=== PATIENT | female | born 1940 | race African-American/Black ===

== ENCOUNTER 2016-07-26 19:02 | Emergency (ER) | payer OTHER, BC ==
[2016-07-26 19:23] VITALS: BP 188/76; PULSE 60; TEMP 98.5; BMI 29.0
--- NOTE | 2016-07-26 19:41 | PDOC ---
History of Present Illness - General Chief Complaint: Edema Stated Complaint: SWOLLEN HAND Time Seen by Provider: 07/26/16 19:34 History Source: Patient Exam Limitations: No Limitations - History of Present Illness Initial Comments: 07/26/16 19:36 She came with daughter for evaluation of right hand swelling. Mother reports does not feel normal, and reports some minor swelling, Some minor tingling. Is uncertain as to the time frame, denies any changes in activity or exercise, denies any trauma no recent heavy lifting or strenuous activity. 07/26/16 19:37 Timing/Duration: unsure Severity: mild Associated Symptoms: reports: denies symptoms, other (no aspirin, palpitations, shortness of breath, numbness or tingling to other hands or feet, no peripheral edema to her lower extremities). denies: cough, diaphoresis, fever/chills, malaise, nausea/vomiting, shortness of breath, weakness Past History - Travel Traveled outside of the country in the last 30 days: No Close contact w/someone who was outside of country & ill: No - Past Medical History Allergies/Adverse Reactions: Allergies Allergy/AdvReac Type Severity Reaction Status Date / Time No Known Allergies Allergy Verified 07/26/16 19:21 Home Medications: Ambulatory Orders Aspirin [ASA -] 81 mg PO DAILY 01/02/16 Aspirin/Dipyridamole [Aggrenox -] 1 combo PO BID 01/02/16 Cholecalciferol (Vitamin D3) [Vitamin D3] 1,000 unit PO DAILY 01/02/16 Glipizide 5 mg PO DAILY 01/02/16 Hydralazine HCl 100 mg PO TID 01/02/16 Losartan Potassium [Cozaar] 100 mg PO DAILY 01/02/16 Nifedipine [Procardia Xl] 60 mg PO BID 01/02/16 Ascorbic Acid [Vitamin C -] 500 mg PO DAILY tablet 01/03/16 Atorvastatin Ca [Lipitor] 20 mg PO HS tablet 01/03/16 Chlorthalidone [Hygroton -] 25 mg PO DAILY tablet 01/03/16 Clonidine HCl [Catapres -] 0.2 mg PO DAILY tablet 01/03/16 Ferrous Sulfate [Feosol] 325 mg PO DAILY ud 01/03/16 CVA: Yes Diabetes: Yes HTN: Yes Seizures: No - Psycho/Social/Smoking Cessation Hx Anxiety: No Suicidal Ideation: No Smoking Status: No Smoking History: Never smoked Have you smoked in the past 12 months: No Number of Cigarettes Smoked Daily: 0 Hx Alcohol Use: No Drug/Substance Use Hx: No Substance Use Type: None Hx Substance Use Treatment: No Review of Systems - Review of Systems Able to Perform ROS?: Yes Is the patient limited Liberian proficient: Yes Constitutional: Yes: Symptoms Reported, See HPI HEENTM: No: See HPI Respiratory: No: Symptoms reported Musculoskeletal: Yes: Symptoms Reported, See HPI All Other Systems: Reviewed and Negative *Physical Exam - Vital Signs Last Vital Signs Temp Pulse Resp BP Pulse Ox 98.5 F 60 18 188/76 98 07/26/16 19:21 07/26/16 19:21 07/26/16 19:21 07/26/16 19:21 07/26/16 19:21 - Physical Exam General Appearance: Yes: Nourished, Appropriately Dressed HEENT: positive: PHILOMENA, Normal ENT Inspection, TMs Normal, Pharynx Normal Neck: positive: Supple Respiratory/Chest: positive: Lungs Clear, Normal Breath Sounds Gastrointestinal/Abdominal: positive: Soft Extremity: positive: Normal Capillary Refill, Normal Inspection (hand does not appear larger than left with observation, daughter agrees there is no changes in size to her knowledge with mother's hand. Has strong flexion and extension to all digits, neurovascular intact to digits. Leg), Normal Range of Motion, Other (monroe with a soft tissue mass approximately 10 cm x 5 cm on the volar aspect of her right arm approximately 3 cm below olecranon fossa on the ulnar aspect. Consistent with appearance of lipoma, is nontender, nonfluctuant) Integumentary: positive: Normal Color, Dry, Warm, Pale Neurologic: positive: baker test II-XII NML intact, Fully Oriented, Alert, Normal Mood/ Affect, Normal Response Medical Decision Making - Medical Decision Making 07/26/16 19:43 Large lipoma to volar right forearm, potentially occluding some lymphatic versus neurovascular structures causing mild symptoms of patient's right hand. 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 Follow-up with primary physician for consultation for lipoma evaluation/excision A follow-up with plastic surgery Return to emergency Department for worsening swelling, numbness or tingling, extension of any neurologic changes to both extremities, fevers or other problems
== END 2016-07-26 19:58 | disposition home or self-care (01) ==
LOC: JERFT 19:02
DX: D17.21 Benign lipomatous neoplasm of skin and subcutaneous tissue of right arm (principal); E11.9 Type 2 diabetes mellitus without complications; Z79.84 Long term (current) use of oral hypoglycemic drugs; Z86.73 Personal history of transient ischemic attack (TIA), and cerebral infarction without residual deficits
CPT/HCPCS: 99281-25

== ENCOUNTER 2016-07-28 17:07 | Emergency (ER) | payer OTHER, BC ==
[2016-07-28 17:12] VITALS: TEMP 98; BMI 29.0
--- NOTE | 2016-07-28 17:51 | PDOC ---
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 She states that the tingling is constant. She denies any kind of weakness or trouble ambulating. She states that she had similar sensations localized on the right side in the past. The patient notes that she has a lipoma on her right forearm for which she is being followed by a plastic surgeon. The patient denies chest pain, shortness of breath, headache and dizziness. Denies fever, chills, nausea, vomit, diarrhea and constipation. Denies dysuria, frequency, urgency and hematuria. Allergies: None Past surgical history: Social history: She denies tobacco, alcohol and drug use PMD - Dr. Daria Ghotra Neurologist - Dr. Osmin Oshea <Theron Blair - Last Filed: 07/28/16 19:26> <Nidia Sheridan - Last Filed: 07/28/16 20:38> - General Chief Complaint: CVA/TIA Stated Complaint: NUMBNESS Time Seen by Provider: 07/28/16 17:51 Past History <Theron Blair - Last Filed: 07/28/16 19:26> - Past Medical History CVA: Yes Diabetes: Yes HTN: Yes Hypercholesterolemia: Yes Seizures: No - Psycho/Social/Smoking Cessation Hx Anxiety: No Suicidal Ideation: No Smoking Status: No Smoking History: Never smoked Have you smoked in the past 12 months: No Number of Cigarettes Smoked Daily: 0 Information on smoking cessation initiated: No Hx Alcohol Use: No Drug/Substance Use Hx: No Substance Use Type: None Hx Substance Use Treatment: No <Nidia Sheridan - Last Filed: 07/28/16 20:38> - Past Medical History Allergies/Adverse Reactions: Allergies Allergy/AdvReac Type Severity Reaction Status Date / Time No Known Allergies Allergy Verified 07/28/16 17:10 Home Medications: Ambulatory Orders Aspirin [ASA -] 81 mg PO DAILY 01/02/16 Aspirin/Dipyridamole [Aggrenox -] 1 combo PO BID 01/02/16 Cholecalciferol (Vitamin D3) [Vitamin D3] 1,000 unit PO DAILY 01/02/16 Glipizide 5 mg PO DAILY 01/02/16 Hydralazine HCl 100 mg PO TID 01/02/16 Losartan Potassium [Cozaar] 100 mg PO DAILY 01/02/16 Ascorbic Acid [Vitamin C -] 500 mg PO DAILY tablet 01/03/16 Atorvastatin Ca [Lipitor] 20 mg PO HS tablet 01/03/16 Chlorthalidone [Hygroton -] 25 mg PO DAILY tablet 01/03/16 Amlodipine Besylate 10 mg PO ASDIR 07/26/16 Carbamazepine [Carbamazepine ER] 200 mg PO BID 07/26/16 Omeprazole 20 mg PO ASDIR 07/26/16 Review of Systems - Review of Systems Able to Perform ROS?: Yes Comments:: 07/28/16 17:52 GENERAL/CONSTITUTIONAL: No fever or chills. No weakness. HEAD, EYES, EARS, NOSE AND THROAT: No change in vision. No ear pain or discharge. No sore throat. CARDIOVASCULAR: No chest pain or shortness of breath RESPIRATORY: No cough, wheezing, or hemoptysis. GASTROINTESTINAL: No nausea, vomiting, diarrhea or constipation. GENITOURINARY: No dysuria, frequency, or change in urination. MUSCULOSKELETAL: No joint or muscle swelling or pain. No neck or back pain. SKIN: No rash NEUROLOGIC: (+)Right upper and lower extremity tingling. No headache, vertigo, loss of consciousness, or change in strength/sensation. ENDOCRINE: No increased thirst. No abnormal weight change HEMATOLOGIC/LYMPHATIC: No anemia, easy bleeding, or history of blood clots. ALLERGIC/IMMUNOLOGIC: No hives or skin allergy. <Theron Blair - Last Filed: 07/28/16 19:26> *Physical Exam - Vital Signs Last Vital Signs Temp Pulse Resp BP Pulse Ox 98 F 57 L 18 167/73 99 07/28/16 17:10 07/28/16 17:10 07/28/16 17:10 07/28/16 17:10 07/28/16 17:10 - Physical Exam Comments: 07/28/16 17:53 GENERAL: Awake, alert, and fully oriented, in no acute distress HEAD: No signs of trauma, normocephalic, atraumatic EYES: PERRLA, EOMI, sclera anicteric, conjunctiva clear ENT: Auricles normal inspection, hearing grossly normal, nares patent, oropharynx clear without exudates. Moist mucosa NECK: Normal ROM, supple, no lymphadenopathy, JVD, or masses LUNGS: No distress, speaks full sentences, clear to auscultation bilaterally HEART: Regular rate and rhythm, normal S1 and S2, no murmurs, rubs or gallops, peripheral pulses normal and equal bilaterally. ABDOMEN: Soft, nontender, normoactive bowel sounds. No guarding, no rebound. No masses EXTREMITIES: (+) Traced pitting edema bilaterally. Normal inspection, Normal range of motion. No clubbing or cyanosis. NEUROLOGICAL: Alert, awake, appropriate. Cranial nerves 2-12 intact. No deficits to light touch and temperature in face, upper extremities and lower extremities. No motor deficits in the in face, upper extremities and lower extremities. Normoreflexic in the upper and lower extremities. Normal speech. Toes are down-going bilaterally. NIH stroke scale is 0 but she has subjective feeling of tingling on the right upper and lower extremity. SKIN: Warm, Dry, normal turgor, no rashes or lesions noted. <Theron Blair - Last Filed: 07/28/16 19:26> - Vital Signs Last Vital Signs Temp Pulse Resp BP Pulse Ox 98 F 57 L 18 167/73 99 07/28/16 17:10 07/28/16 17:10 07/28/16 17:10 07/28/16 17:10 07/28/16 17:10 <Nidia Sheridan - Last Filed: 07/28/16 20:38> NIH Stroke Scale - Last Known Well Date/Time & Onset Date Last Known Well: 07/27/16 (woke up with tingling to rt arm,rt leg) Time Last Known Well: 12:00 - Initial Evaluation Level of consciousness: Alert Ask patient the month and their age: Answers both correctly Ask patient to open & close eyes; make fist and let go: Obeys both correctly Best gaze (horizontal eye movement): Normal Visual field testing: No visual field loss Facial paresis (Show teeth/raise eyebrows/close eyes tight): Normal symmetrical movement Motor Function: Left Arm: Normal Motor Function: Right Arm: Normal (extends arm 90 (or 45) degrees for 10 seconds without drift Motor Function: Left Leg: Normal (extends leg 30 degrees for 5 seconds without drift) Motor Function: Right Leg: Normal (extends leg 30 degrees for 5 seconds without drift) Limb Ataxia: No ataxia Sensory(Use pinprick test arms,legs,trunk,face/side to side): Normal Best language (Describe picture, name items, read sentences): No Aphasia Dysarthria (read several words): Normal articulation Extinction and Inattention: No abnormality - Total Score NIH Stroke Scale Score: 0 <ArvinNidia Olivas - Last Filed: 07/28/16 20:38> tPA Exclusion checklist 3-4.5h - Time Elapsed Date last known well: 07/27/16 Time last known well: 12:00 Elaspsed time: 1 Day(s) and 8 Hour(s) and 34 Minutes - Thrombolytic Therapy Candidate Is patient eligible for thrombolytic therapy: No - Exclusion Criteria 3-4.5 hr SBP greater than 185 or DBP greater than 110mmHg despite tx: No Recent IC/spinal surgery,head trauma or stroke<3mos.: No Hx IC hemorrhage, IC neoplasm, AV malformation or aneurysm: No Active internal bleeding: No Blding diathesis(low plt ct, inc PTT,INR>1.7 or use of NOAC): No Symptoms suggest subarachnoid hemorrhage: No CT demonstrates multilobar infarct(>1/3 cerebral hemiphere): No Arterial puncture at noncompressible site in previous 7 days: No Blood glucose concentration less than 50mg/dL (2.7mmol/L): No - Relative Exclusion Criteria 3-4.5 hr Life expectancy <1 yr or severe co-morbid illness: No : No Patient/family refused: No Rapid improvement: No Stroke severity too mild: Yes Recent acute [place] (w/in previous 3 months): No Seizure at onset with postictal residual neuro impairments: No Major surgery or serious trauma w/in previous 14 days: No Recent GI or hemorrhage (w/in previous 21 days): No - Add'l Relative Exclusion 3-4.5 hr Age > 80: No Hx of both diabetes AND prior ischemic stroke: Yes Taking an oral anticoagulant regardless of INR: No NIHSS >25: No - Ineligibility reason(s) Reasons No tPA given: Outside of window - delayed arrival (pt's NIHSS is zero and she woke up 12 hours ago with subjective tingling to rt arm.leg) <Nidia Sheridan - Last Filed: 07/28/16 20:38> Critical Care Time/MDM Note - Medical Decision Making Note: 07/28/16 19:[address] Reviewed by: Dr. Ravi Briscoe Impression: No definite interval change is seen in comparison to a previous CT exam of 01/01/2016. Small chronic left occipital and left parietal cortical infarcts are noted as well as a small chronic right pontine infarct which are much better visualized on MRI (10/24/2015). <Theron Blair - Last Filed: 07/28/16 19:26> Discharge Disposition - Transfer to Acute Care Facility Transfer comment: 07/28/16 17:53 Documentation prepared by Theron Blair, acting as medical case worker for Nidia Sheridan MD <Theron Blair - Last Filed: 07/28/16 19:26> - Discharge Dispostion Last Admission D/C Date: 05/07/15 <Nidia Sheridan - Last Filed: 07/28/16 20:38> - Diagnosis Tingling in extremities Diabetes mellitus Qualifiers: Diabetes mellitus type: type 2 Diabetes mellitus complication status: with hyperglycemia Diabetes mellitus chcf insulin use: without chcf use Qualified Code(s): E11.65 - Type 2 diabetes mellitus with hyperglycemia - Discharge Dispostion Disposition: HOME Condition at time of disposition: Stable - Referrals Referrals: Daria Moreno MD [Primary Care Provider] - Osmin Oshea MD [Staff Physician] - - Patient Instructions Printed Discharge Instructions: DI for Numbness/tingling Additional Instructions: please followup with the neurologist Call 911 if you experience weakness in your arm or leg,slurred speech,facial droop or confusion
[2016-07-28 18:02] LABS: BASOPHIL 0.8 % (0-2.0); EOSINOPHIL 1.7 % (0-4.5); MCH 24.2 pg (25.7-33.7); MCHC 31.1 g/dl (32.0-36.0); MEAN CELL VOLUME 77.7 fl (80-96); MEAN PLT VOLUME 9.3 fl (7.5-11.1); NEUTROPHILS 69.2 % (42.8-82.8); PLATELET COUNT 143 K/MM3 (134-434); RDW 14.7 % (11.6-15.6); WHITE BLOOD COUNT 6.3 K/mm3 (4.0-10.0)
[2016-07-28 18:32] LABS: INR 1.01 (0.82-1.09); PROTHROMBIN TIME (PATIENT) 11.1 SEC (9.98-11.88)
[2016-07-28 18:42] LABS: ALBUMIN 3.9 g/dl (3.4-5.0); ANION GAP 9 (8-16); BILIRUBIN,TOTAL 0.3 mg/dL (0.2-1.0); CALCIUM 8.9 mg/dL (8.5-10.1); CO2 27 mmol/L (21-32); COCKROFT - GAULT 69.6065; CREATININE 0.9 mg/dL (0.55-1.02); GLUCOSE,RANDOM 217 mg/dL (74-106); SGOT/AST 19 U/L (15-37); SGPT/ALT 26 U/L (12-78); TOT PROT 6.9 g/dl (6.4-8.2)
[2016-07-28 18:44] LABS: ALK PHOS 113 U/L (45-117); TROPONIN I < 0.02 ng/ml (0.00-0.05)
[2016-07-28 20:41] VITALS: BP 121/61; PULSE 81
--- NOTE | 2016-07-29 13:58 | EKG ---
Test Reason : Blood Pressure : / mmHG Vent. Rate : 056 BPM Atrial Rate : 056 BPM P-R Int : 154 ms QRS Dur : 114 ms QT Int : 450 ms P-R-T Axes : 055 -42 015 degrees QTc Int : 434 ms SINUS BRADYCARDIA LEFT AXIS DEVIATION NONSPECIFIC T WAVE ABNORMALITY ABNORMAL ECG WHEN COMPARED WITH ECG OF 01-JAN-2016 11:45, CRITERIA FOR SEPTAL INFARCT ARE NO LONGER PRESENT Confirmed by REYNALDO DALLAS, STEVEN ([id number]) on 07/29/2016 1:57:38 PM Referred By: Confirmed By:STEVEN JACOBS MD
== END 2016-07-28 20:45 | disposition home or self-care (01) ==
LOC: JER 17:07
DX: R20.2 Paresthesia of skin (principal); I69.851 Hemiplegia and hemiparesis following other cerebrovascular disease affecting right dominant side; I10 Essential (primary) hypertension; E11.65 Type 2 diabetes mellitus with hyperglycemia; Z79.84 Long term (current) use of oral hypoglycemic drugs; E78.00 Pure hypercholesterolemia, unspecified; G40.509 Epileptic seizures related to external causes, not intractable, without status epilepticus
CPT/HCPCS: 36415; 70450-TC; 71010-TC; 80053; 82550; 82553; 84484; 85025; 85610; 93005; 93010; 99285-25

== ENCOUNTER → 2016-08-10 | Day surgery (SDC) | payer OTHER, BC ==
--- NOTE | 2016-08-11 13:11 | PATH ---
Cytology Non-Gynecological Report Patient Name: MARILEE MURPHY [facility]. Rec. #: [id number] /Age/Gender: 1940 (Age: 76) / F Account: [id number] Location: RADIOLOGY Taken: 08/10/2016 Received: 08/10/2016 Reported: 08/11/2016 Physicians: Jignesh Sanders M.D. Specimen(s) Received THYROID FNA RIGHT LOBE Clinical History Right thyroid nodule, 1.58 x 1.28 x 1.51 cm Final Diagnosis THYROID GLAND, RIGHT LOBE, US GUIDED FINE NEEDLE ASPIRATION BIOPSY: SATISFACTORY FOR EVALUATION. NO MALIGNANT CELLS IDENTIFIED. CONSISTENT WITH NODULAR GOITER WITH CYSTIC CHANGE (BENIGN FOLLICULAR NODULE, BETHESDA CATEGORY II, BENIGN), SEE COMMENT. Comment: The smears and the cell block show scattered clusters of bland appearing follicular epithelial cells arranged in mixed micro-and microfollicles. Some cells show Hurthle cell (oncocytic) change. Numerous macrophages are present indicative of cystic change. Colloid is present. Electronically Signed Jong Alvarado M.D. Gross Description Received are four air dried smears, four smears in 95% alcohol, and 20 cc of bloody fluid in formalin. Four diff-quik stained slides, four Pap stained slides and one cell block are made.
== END | disposition home or self-care (01) ==
LOC: JRADIR 08:50
PROVIDERS: ATTEND Internal Medicine
PROC: 0G9G3ZX Drainage of Left Thyroid Gland Lobe, Percutaneous Approach, Diagnostic (ICD-10-PCS; principal; 2016-08-10)
DX: E04.9 Nontoxic goiter, unspecified (principal)
CPT/HCPCS: 76942; 88173; 88305-TC

== ENCOUNTER 2016-08-13 00:44 | Emergency (ER) | payer OTHER, BC ==
[2016-08-13 01:32] VITALS: BP 168/80; PULSE 78; TEMP 97.5; BMI 30.4
[2016-08-13] MEDS ORDERED: CHLORTHALIDONE 25 MG TABLET PO STA (01:58)
--- NOTE | 2016-08-13 01:58 | PDOC ---
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 Patient reports she ran out of her diuretics 2 days ago. Presents here with bilateral leg swelling, but no pain. Denies lightheadedness, diaphoresis, chest pain, palpitations, SOB, jaw pain, shoulder pain, arm pain, nausea, or vomiting. Patient attempted to get her pmd to refill her prescription, but was unable to get in contact with her The patient denies fever, chills, cough, abdominal pain, and diarrhea. Allergies: NKDA Social History: No alcohol, tobacco, or drug use reported. Past Surgical History: PCP: Dr. Daria Moreno Neurologist: Dr. Osmin Oshea <Jennyfer Manley - Last Filed: 08/13/16 02:07> - General Chief Complaint: Edema Stated Complaint: SWOLLEN LEGS Time Seen by Provider: 08/13/16 01:54 Past History - Past Medical History CVA: Yes Diabetes: Yes HTN: Yes Hypercholesterolemia: Yes Seizures: No - Psycho/Social/Smoking Cessation Hx Anxiety: No Suicidal Ideation: No Smoking Status: No Smoking History: Never smoked Have you smoked in the past 12 months: No Number of Cigarettes Smoked Daily: 0 Information on smoking cessation initiated: No Hx Alcohol Use: No Drug/Substance Use Hx: No Substance Use Type: None Hx Substance Use Treatment: No <Theron Schwab - Last Filed: 08/13/16 02:00> <Jennyfer Manley - Last Filed: 08/13/16 02:07> - Past Medical History Allergies/Adverse Reactions: Allergies Allergy/AdvReac Type Severity Reaction Status Date / Time No Known Allergies Allergy Verified 08/13/16 01:29 Home Medications: Ambulatory Orders Aspirin [ASA -] 81 mg PO DAILY 01/02/16 Aspirin/Dipyridamole [Aggrenox -] 1 combo PO BID 01/02/16 Cholecalciferol (Vitamin D3) [Vitamin D3] 1,000 unit PO DAILY 01/02/16 Glipizide 5 mg PO DAILY 01/02/16 Hydralazine HCl 100 mg PO TID 01/02/16 Losartan Potassium [Cozaar] 100 mg PO DAILY 01/02/16 Ascorbic Acid [Vitamin C -] 500 mg PO DAILY tablet 01/03/16 Atorvastatin Ca [Lipitor] 20 mg PO HS tablet 01/03/16 Amlodipine Besylate 10 mg PO ASDIR 07/26/16 Carbamazepine [Carbamazepine ER] 200 mg PO BID 07/26/16 Omeprazole 20 mg PO ASDIR 07/26/16 Chlorthalidone [Hygroton -] 25 mg PO DAILY #60 tablet 08/13/16 Review of Systems - Review of Systems Able to Perform ROS?: Yes Comments:: 08/13/16 02:06 CONSTITUTIONAL: Absent: fever, no chills, no fatigue EYES: Absent: visual changes ENT: Absent: ear pain, no sore throat CARDIOVASCULAR: Absent: chest pain, no palpitations RESPIRATORY: Absent: cough, no SOB GI: Absent: abdominal pain, no nausea, no vomiting, no constipation, no diarrhea GENITOURINARY: Absent: dysuria, no frequency, no hematuria MUSCULOSKELETAL: +bilateral leg swelling Absent: back pain, no arthralgia, no myalgia SKIN: Absent: rash NEURO: Absent: headache <Jennyfer Manley - Last Filed: 08/13/16 02:07> *Physical Exam - Vital Signs Last Vital Signs Temp Pulse Resp BP Pulse Ox 97.5 F L 78 14 168/80 99 08/13/16 01:29 08/13/16 01:29 08/13/16 01:29 08/13/16 01:29 08/13/16 01:29 <Theron Schwab - Last Filed: 08/13/16 02:00> - Vital Signs Last Vital Signs Temp Pulse Resp BP Pulse Ox 97.5 F L 78 14 168/80 99 08/13/16 01:29 08/13/16 01:29 08/13/16 01:29 08/13/16 01:29 08/13/16 01:29 - Physical Exam Comments: 08/13/16 02:06 GENERAL: Well-appearing, well-nourished. No apparent distress. HEENT: Normocephalic, atraumatic. PERRL, EOM intact. CARDIOVASCULAR: Normal S1, S2. Regular rate and rhythm. PULMONARY: Clear to auscultation bilaterally. ABDOMEN: Soft, non-distended, non-tender. EXTREMITIES: Normal ROM in all four extremities. Bilateral +1 pitting edema. No gross deformities. SKIN: Warm, dry. No rash NEUROLOGICAL: No focal neurological deficits. <Jennyfer Manley - Last Filed: 08/13/16 02:07> Medical Decision Making - Medical Decision Making 08/13/16 02:00 Dr. Schwab: The scribe's documentation has been prepared under my direction and personally reviewed by me in its entirery. I confirm that the note above accurately reflects all work, treatment, procedures, and medical decision making performed by me. <Theron Schwab - Last Filed: 08/13/16 02:00> *DC/Admit/Observation/Transfer - Discharge Dispostion Admit: No <Theron Schwab - Last Filed: 08/13/16 02:00> - Attestations Scribe Attestion: 08/13/16 02:07 Documentation prepared by Jennyfer Manley, acting as medical authorization specialist for Theron Schwab MD/DO. <Jennyfer Manley - Last Filed: 08/13/16 02:07> Diagnosis at time of Disposition: Leg edema - Discharge Dispostion Disposition: HOME Condition at time of disposition: Stable - Prescriptions Prescriptions: Chlorthalidone [Hygroton -] 25 mg PO DAILY #60 tablet - Referrals Referrals: Daria Moreno MD [Primary Care Provider] - - Patient Instructions Printed Discharge Instructions: DI for Peripheral Edema -- Bilateral
== END 2016-08-13 02:56 | disposition home or self-care (01) ==
LOC: JER 00:44
DX: R60.0 Localized edema (principal); I10 Essential (primary) hypertension; E78.00 Pure hypercholesterolemia, unspecified; E78.5 Hyperlipidemia, unspecified; E11.9 Type 2 diabetes mellitus without complications; Z79.84 Long term (current) use of oral hypoglycemic drugs; I69.851 Hemiplegia and hemiparesis following other cerebrovascular disease affecting right dominant side; I69.398 Other sequelae of cerebral infarction; R56.9 Unspecified convulsions
CPT/HCPCS: 99281-25

== ENCOUNTER 2017-06-06 05:13 | Emergency (ER) | payer OTHER, BC ==
[2017-06-06 05:31] VITALS: BMI 29.0
--- NOTE | 2017-06-06 06:28 | PDOC ---
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 She reports she can move her arm. She reports using Aleve, without relief. She denies recent fevers, chills, headache or dizziness. She denies recent nausea, vomit, diarrhea or constipation. She denies recent dysuria, frequency, urgency or hematuria. She denies recent chest pain or shortness of breath. Allergies: NKA Social history: Nonsmoker. Denies EtOH use and recreational drug use. Primary Care Physician: Dr. Daria Moreno <Shweta Dejesus - Last Filed: 06/06/17 07:11> <Marlys Villalobos - Last Filed: 06/06/17 21:24> - General Chief Complaint: Chest Pain Stated Complaint: RIGHT ARM PAIN Time Seen by Provider: 06/06/17 06:27 Past History <Shweta Dejesus - Last Filed: 06/06/17 07:11> - Past Medical History CVA: Yes Diabetes: Yes HTN: Yes Hypercholesterolemia: Yes Seizures: No - Suicide/Smoking/Psychosocial Hx Smoking Status: No Smoking History: Never smoked Have you smoked in the past 12 months: No Number of Cigarettes Smoked Daily: 0 Information on smoking cessation initiated: No Hx Alcohol Use: No Drug/Substance Use Hx: No Substance Use Type: None Hx Substance Use Treatment: No <Marlys Villalobos - Last Filed: 06/06/17 21:24> - Past Medical History Allergies/Adverse Reactions: Allergies Allergy/AdvReac Type Severity Reaction Status Date / Time No Known Allergies Allergy Verified 06/06/17 05:31 Home Medications: Ambulatory Orders Aspirin [ASA -] 81 mg PO DAILY 01/02/16 Aspirin/Dipyridamole [Aggrenox -] 1 combo PO BID 01/02/16 Cholecalciferol (Vitamin D3) [Vitamin D3] 1,000 unit PO DAILY 01/02/16 Glipizide 5 mg PO DAILY 01/02/16 Hydralazine HCl 100 mg PO TID 01/02/16 Losartan Potassium [Cozaar] 100 mg PO DAILY 01/02/16 Ascorbic Acid [Vitamin C -] 500 mg PO DAILY tablet 01/03/16 Atorvastatin Ca [Lipitor] 20 mg PO HS tablet 01/03/16 Amlodipine Besylate 10 mg PO ASDIR 07/26/16 Carbamazepine [Carbamazepine ER] 200 mg PO BID 07/26/16 Omeprazole 20 mg PO ASDIR 07/26/16 Chlorthalidone [Hygroton -] 25 mg PO DAILY #60 tablet 08/13/16 Review of Systems - Review of Systems Able to Perform ROS?: Yes Comments:: 06/06/17 07:12 GENERAL/CONSTITUTIONAL: No fever or chills. No weakness. HEAD, EYES, EARS, NOSE AND THROAT: No change in vision. No ear pain or discharge. No sore throat. CARDIOVASCULAR: No chest pain or shortness of breath. RESPIRATORY: No cough, wheezing, or hemoptysis. GASTROINTESTINAL: No nausea, vomiting, diarrhea or constipation. GENITOURINARY: No dysuria, frequency, or change in urination. MUSCULOSKELETAL: +Pain right shoulder. No neck or back pain. SKIN: No rash NEUROLOGIC: No headache, vertigo, loss of consciousness, or change in strength/ sensation. ENDOCRINE: No increased thirst. No abnormal weight change. HEMATOLOGIC/LYMPHATIC: No anemia, easy bleeding, or history of blood clots. ALLERGIC/IMMUNOLOGIC: No hives or skin allergy. All Other Systems: Reviewed and Negative <Shweta Dejesus - Last Filed: 06/06/17 07:11> *Physical Exam - Vital Signs Last Vital Signs Temp Pulse Resp BP Pulse Ox 98.3 F 87 16 161/75 100 06/06/17 05:29 06/06/17 05:29 06/06/17 05:29 06/06/17 05:29 06/06/17 05:29 - Physical Exam Comments: 06/06/17 07:13 GENERAL: Awake, alert, and fully oriented, in no acute distress HEAD: No signs of trauma EYES: PERRLA, EOMI, sclera anicteric, conjunctiva clear ENT: Auricles normal inspection, hearing grossly normal, nares patent, oropharynx clear without exudates. Moist mucosa NECK: Normal ROM, supple, no lymphadenopathy, JVD, or masses LUNGS: Breath sounds equal, clear to auscultation bilaterally. No wheezes, and no crackles HEART: Regular rate and rhythm, normal S1 and S2, no murmurs, rubs or gallops ABDOMEN: Soft, nontender, normoactive bowel sounds. No guarding, no rebound. No masses EXTREMITIES: + 1+ Pitting edema of bilateral lower extremities. Bilateral shoulder tenderness. Decreased ROM of the right shoulder (baseline). No clubbing or cyanosis. No cords, erythema, or tenderness NEUROLOGICAL: Cranial nerves II through XII grossly intact. Normal speech, normal gait SKIN: Warm, Dry, normal turgor, no rashes or lesions noted. <Shweta Dejesus - Last Filed: 06/06/17 07:11> - Vital Signs Last Vital Signs Temp Pulse Resp BP Pulse Ox 98.3 F 87 16 161/75 100 06/06/17 05:29 06/06/17 05:29 06/06/17 05:29 06/06/17 05:29 06/06/17 05:29 <Marlys Villalobos - Last Filed: 06/06/17 21:24> ED Treatment Course - LABORATORY CBC & Chemistry Diagram: 06/06/17 07:35 06/06/17 07:35 <Marlys Villalobos - Last Filed: 06/06/17 21:24> Medical Decision Making - Medical Decision Making 06/06/17 07:21 Pt comes with bilateral shoulder pain and elevated blood pressure. States that she wants to make sure that the shoulder pain is not related to her heart. However, pt has significant risk factors: DM, HTN, CVA 5 years ago, age. Pt will have cardiac lab workup. EKG done: NSR; Left axis deviation. CXR and labs pending. Pt will be signed out to the day ER team. <Marlys Villalobos - Last Filed: 06/06/17 21:24> *DC/Admit/Observation/Transfer - Attestations Scribe Attestion: 06/06/17 07:14 Documentation prepared by Shweta Dejesus, acting as medical certification specialist for Marlys Villalobos MD. <Shweta Dejesus - Last Filed: 06/06/17 07:11> - Discharge Dispostion Admit: No <Marlys Villalobos - Last Filed: 06/06/17 21:24> Diagnosis at time of Disposition: Shoulder pain - Discharge Dispostion Disposition: HOME Condition at time of disposition: Good - Referrals Referrals: Daria Moreno MD [Primary Care Provider] - - Patient Instructions Printed Discharge Instructions: DI for Shoulder Pain Additional Instructions: Ice affected shoulder 20 minutes on 20 minutes off. Take [id number] Tylenol as directed on package. Follow-up with your primary care provider this week. Follow-up with Dr. Duarte orthopedics. Return to the emergency department for any chest pain shortness of breath severe worsening symptoms or for any concerns. - Post Discharge Activity
[2017-06-06] MEDS ORDERED: NITROGLYCERIN SUBLINGUAL 1/150 0.4 MG TAB SL ONE (07:28)
[2017-06-06 08:00] LABS: BASO % 0.2 % (0-2.0); EOS % 0.8 % (0-4.5); HEMATOCRIT 33.2 % (32.4-45.2); HEMOGLOBIN 10.5 GM/dL (10.7-15.3); LYMPH % 12.1 % (8-40); MCH 23.9 pg (25.7-33.7); MCHC 31.8 g/dl (32.0-36.0); MEAN CELL VOLUME 75.3 fl (80-96); MEAN PLT VOLUME 9.8 fl (7.5-11.1); MONO % 8.1 % (3.8-10.2); NEUT % 78.8 % (42.8-82.8); PLATELET COUNT 142 K/MM3 (134-434); RDW 16.2 % (11.6-15.6); WHITE BLOOD COUNT 5.8 K/mm3 (4.0-10.0)
[2017-06-06 08:06] LABS: ALBUMIN 3.8 g/dl (3.4-5.0); ANION GAP 8 (8-16); BILIRUBIN,TOTAL 0.6 mg/dL (0.2-1.0); BLOOD UREA NITROGEN 27 mg/dL (7-18); CALCIUM 8.8 mg/dL (8.5-10.1); CHLORIDE 106 mmol/L (98-107); CO2 27 mmol/L (21-32); CREATININE 0.7 mg/dL (0.55-1.02); GLUCOSE,RANDOM 187 mg/dL (74-106); POTASSIUM 4.1 mmol/L (3.5-5.1); SGOT/AST 13 U/L (15-37); SGPT/ALT 18 U/L (12-78); SODIUM 141 mmol/L (136-145); TOT PROT 6.9 g/dl (6.4-8.2)
[2017-06-06 08:09] LABS: ALK PHOS 92 U/L (45-117)
[2017-06-06] MEDS ORDERED: ACETAMINOPHEN 1000 MG/100 ML VIAL (NON FORMULARY) IVPB ONE (08:47)
[2017-06-06 08:48] LABS: INR 0.99 (0.82-1.09); PROTHROMBIN TIME (PATIENT) 11.2 SEC (9.98-11.88)
[2017-06-06] MEDS ORDERED: ACETAMINOPHEN INJECTION 100 ML IVPB ONE (08:53)
--- NOTE | 2017-06-06 10:18 | PDOC ---
*Physical Exam - Vital Signs Last Vital Signs Temp Pulse Resp BP Pulse Ox 98.3 F 87 16 161/75 100 06/06/17 05:29 06/06/17 05:29 06/06/17 05:29 06/06/17 05:29 06/06/17 05:29 - Physical Exam General Appearance: Yes: Nourished Respiratory/Chest: positive: Lungs Clear Cardiovascular: positive: Regular Rhythm, Regular Rate Extremity: positive: Normal Capillary Refill, Tender, Other (pain with overhead shoulder raise, and external rotation). negative: Normal Range of Motion Neurologic: positive: Normal Mood/Affect, Normal Response, Motor Strength 07/31 ED Treatment Course - LABORATORY CBC & Chemistry Diagram: 06/06/17 07:35 06/06/17 07:35 - ADDITIONAL ORDERS Additional order review: Laboratory Results 06/06/17 06/06/17 06/06/17 09:32 07:35 07:35 PT with INR 11.20 INR 0.99 PTT (Actin FS) Sodium 141 Potassium 4.1 Chloride 106 Carbon Dioxide 27 Anion Gap 8 BUN 27 H Creatinine 0.7 Creat Clearance w eGFR > 60 Random Glucose 187 H Calcium 8.8 Total Bilirubin 0.6 D AST 13 L ALT 18 Alkaline Phosphatase 92 Creatine Kinase 214 H Creatine Kinase Index 0.7 CK-MB (CK-2) 1.599 Troponin I < 0.02 < 0.02 Total Protein 6.9 Albumin 3.8 06/06/17 07:06 PT with INR INR PTT (Actin FS) 28.8 Sodium Potassium Chloride Carbon Dioxide Anion Gap BUN Creatinine Creat Clearance w eGFR Random Glucose Calcium Total Bilirubin AST ALT Alkaline Phosphatase Creatine Kinase Creatine Kinase Index CK-MB (CK-2) Troponin I Total Protein Albumin 06/06/17 07:35 RBC 4.40 MCV 75.3 L MCHC 31.8 L RDW 16.2 H D MPV 9.8 Neutrophils % 78.8 Lymphocytes % 12.1 D Monocytes % 8.1 Eosinophils % 0.8 Basophils % 0.2 - RADIOLOGY Radiology Studies Ordered: Category Date Time Status SHOULDER-RIGHT [RAD] Stat Radiology 06/06/17 08:46 Completed - Medications Given in the ED: ED Medications Discontinued Medications Generic Name Dose Route Start Last Admin Trade Name Freq PRN Reason Stop Dose Admin Acetaminophen 1,000 mg 06/06/17 08:47 06/06/17 08:58 Ofirmev Injection - IVPB 06/06/17 08:48 1,000 mg ONCE ONE Administration Nitroglycerin 0.8 mg 06/06/17 07:28 06/06/17 07:35 Nitrostat - SL 06/06/17 07:29 0.8 mg ONCE ONE Administration Medical Decision Making - Medical Decision Making 06/06/17 10:13 77 years old past medical history significant for hypertension diabetes high cholesterol presents to the emergency department with right shoulder pain last night. Pain is worse with movement worse when she lays on it is worse with overhead extension and worse with external rotation Given the patient's significant past medical history and EKG was performed and a troponin was sent EKG was nonischemic her troponin was negative I was signed out the patient to follow up labs I evaluated the patient her heart and lungs are within normal limits she denies chest pain at this time her complaint is shoulder discomfort. She was given IV Tylenol with some improvement in symptomatology her shoulder x-ray demonstrates arthritis she is troponin negative 2 at this point I believe given that she has reproducible shoulder pain she is stable for outpatient follow-up with orthopedics my suspicion for ACS is very low at this time Findings, the need for follow-up, strict return instructions discussed with patient. *DC/Admit/Observation/Transfer Diagnosis at time of Disposition: Shoulder pain Qualifiers: Chronicity: unspecified Laterality: right Qualified Code(s): M25.511 - Pain in right shoulder - Discharge Dispostion Disposition: HOME Condition at time of disposition: Good Admit: No - Referrals Referrals: Daria Moreno MD [Primary Care Provider] - - Patient Instructions Printed Discharge Instructions: DI for Shoulder Pain Additional Instructions: Ice affected shoulder 20 minutes on 20 minutes off. Take [id number] Tylenol as directed on package. Follow-up with your primary care provider this week. Follow-up with Dr. Duarte orthopedics. Return to the emergency department for any chest pain shortness of breath severe worsening symptoms or for any concerns. - Post Discharge Activity
[2017-06-06 10:38] VITALS: BP 147/86; PULSE 79; TEMP 98.6
--- NOTE | 2017-06-06 19:59 | EKG ---
Test Reason : Blood Pressure : / mmHG Vent. Rate : 066 BPM Atrial Rate : 066 BPM P-R Int : 164 ms QRS Dur : 104 ms QT Int : 412 ms P-R-T Axes : 076 -48 062 degrees QTc Int : 431 ms NORMAL SINUS RHYTHM LEFT AXIS DEVIATION ABNORMAL ECG WHEN COMPARED WITH ECG OF 28-JUL-2016 19:16, T WAVE VARIATION Confirmed by RICHARDSON WHIPPLE MD ([id number]) on 06/06/2017 7:59:13 PM Referred By: Confirmed By:RICHARDSON WHIPPLE MD
== END 2017-06-06 10:41 | disposition home or self-care (01) ==
LOC: JER 05:13
PROC: 3E033NZ Introduction of Analgesics, Hypnotics, Sedatives into Peripheral Vein, Percutaneous Approach (ICD-10-PCS; principal; 2017-06-06)
DX: M25.511 Pain in right shoulder (principal); I10 Essential (primary) hypertension; E78.00 Pure hypercholesterolemia, unspecified; E11.9 Type 2 diabetes mellitus without complications; Z79.4 Long term (current) use of insulin; Z79.84 Long term (current) use of oral hypoglycemic drugs; R60.0 Localized edema; I69.851 Hemiplegia and hemiparesis following other cerebrovascular disease affecting right dominant side
CPT/HCPCS: 36415; 71046-TC-FY; 73030-TC-RT-FY; 80053; 82550; 82553; 84484; 85025; 85610; 85730; 93005; 93010; 96374; 99285-25

== ENCOUNTER 2022-04-20 11:21 | Emergency (ER) | payer OTHER, BC ==
[2022-04-20 11:33] VITALS: RESP 20; BMI 28.8
[2022-04-20 13:22] LABS: BASO % 0.1 % (0-2.0); EOS % 0.2 % (0-4.5); HEMATOCRIT 36.3 % (32.4-45.2); HEMOGLOBIN 11.2 GM/dL (10.7-15.3); LYMPH % 6.5 % (8-40); MCH 23.4 pg (25.7-33.7); MEAN CELL VOLUME 75.6 fl (80-96); MEAN PLT VOLUME 8.6 fl (7.5-11.1); NEUT % 88.2 % (42.8-82.8); PLATELET COUNT 231 10^3/uL (134-434)
[2022-04-20 13:24] LABS: INR 0.99 (0.83-1.09); PROTHROMBIN TIME (PATIENT) 11.4 SEC (9.7-13.0)
[2022-04-20 13:27] LABS: ACTIVATED PTT 31.7 SECONDS (25.2-36.5)
[2022-04-20 13:48] LABS: CALCIUM 9.8 mg/dL (8.5-10.1)
[2022-04-20 13:49] LABS: BLOOD UREA NITROGEN 21.2 mg/dL (7-18); MAGNESIUM 1.9 mg/dL (1.8-2.4)
[2022-04-20 13:52] LABS: CREATININE 0.7 mg/dL (0.55-1.3)
[2022-04-20 13:53] LABS: BILIRUBIN,TOTAL 0.7 mg/dL (0.2-1); TOT PROT 7.3 g/dl (6.4-8.2)
[2022-04-20 14:00] LABS: EPI CELLS 15 /uL (0-25.1); HYALINE CASTS 0 /uL (0-3.1); URINE APPEARANCE CLEAR; URINE BACTERIA 120 /uL (0-1359); URINE BILIRUBIN NEGATIVE (NEGATIVE); URINE COLOR YELLOW; URINE GLUCOSE (UA) 3+ (NEGATIVE); URINE KETONE 1+ (NEGATIVE); URINE LEUK ESTERASE 2+ (NEGATIVE); URINE NITRITE NEGATIVE (NEGATIVE); URINE PROTEIN NEGATIVE (NEGATIVE); URINE RBC 14 /uL (0-23.9); URINE WBC 29 /uL (0-25.8)
[2022-04-20 15:37] VITALS: BP 134/58; PULSE 84; TEMP 98.6
== END 2022-04-20 17:15 | disposition home or self-care (01) ==
LOC: JER 11:21
DX: R00.2 Palpitations (principal)
CPT/HCPCS: 36415; 71046-TC-FY; 80053; 81003; 83735; 84443; 84484; 85025; 85379; 85610; 85730; 93005; 93010; 99285-25